=== PATIENT | male | born 1980 | race Two or more races ===

== ENCOUNTER 2020-01-22 10:25 | Emergency (ER) | payer OTHER ==
[~2020-01-22] VITALS: Ht 182.9 cm; Wt 133.8 kg
[2020-01-22 10:34] VITALS: BP 139/89
[2020-01-22] MEDS ORDERED: ACETAMINOPHEN 500 MG TAB PO ONE (10:45)
[2020-01-23] MEDS ORDERED: MONT10TA34 PO (12:44)
[2020-01-23] MEDS ORDERED: ALBUAER3 IN (12:44)
[2020-01-23] MEDS ORDERED: FLUT100I IN (12:44)
[2020-01-23] MEDS ORDERED: AZIT250T9 PO (12:44)
[2020-01-23] MEDS ORDERED: PRED20TA2 PO (12:44)
[2020-01-23] MEDS ORDERED: BENZ100C97 PO (12:44)
[2020-01-23] MEDS ORDERED: ALBU0.084 NEB (12:44)
[2020-01-23] MEDS ORDERED: ELDE1SYP PO (12:48)
[2020-01-30] MEDS ORDERED: METH4PAK PO (12:24)
[2020-01-30] MEDS ORDERED: ASCO10003 PO (12:24)
[2020-01-30] MEDS ORDERED: ZINC220T6 PO (12:24)
[2020-01-30] MEDS ORDERED: DOXY-286 PO (12:24)
[2020-01-30] MEDS ORDERED: PANT40TA2 PO (12:24)
== END 2020-01-22 11:16 | disposition home or self-care (01) ==
LOC: ER 10:25
DX: R06.02 Shortness of breath (principal); Z20.828 Contact with and (suspected) exposure to other viral communicable diseases

== ENCOUNTER 2020-01-23 03:07 | Inpatient (IN) | payer OTHER ==
[~2020-01-23] VITALS: Ht 182.9 cm; Wt 131.6 kg
[2020-01-23] MEDS ORDERED: SODIUM CHLORIDE 0.9% 1,000 ML IV ONE (05:55)
[2020-01-23] MEDS ORDERED: ACETAMINOPHEN 325 MG TAB PO ONE (06:00)
[2020-01-23 06:57] LABS: Basophils # (auto) 0 10 ^3/uL (0-0.2); Basophils % (auto) 0.2 % (0.0-2.0); Eosinophils # (auto) 0 10 ^3/uL (0-0.8); Hematocrit 44.5 % (41.0-53.0); Hemoglobin 14.8 g/dL (13.5-17.5); Lymphocytes # (auto) 0.6 10 ^3/uL (0.4-5.4); Lymphocytes % (auto) 5.2 % (10.0-50.0); Mean Corpuscular Hemoglobin 30.6 pg (28.0-32.0); Mean Corpuscular Hgb Conc. 33.4 g/dL (32.0-36.0); Mean Corpuscular Volume 91.8 fL (80.0-100.0); Monocytes # (auto) 0.4 10 ^3/uL (0-1.3); Monocytes % (auto) 3.7 % (0.0-12.0); Neutrophils # (auto) 10.8 10 ^3/uL (1.6-8.6); Neutrophils % (auto) 90.9 % (37.0-80.0); Nucleated Red Blood Cells % 0.1 %; Platelet Count (auto) 133 10^3/uL (140-450); Red Blood Cells 4.85 10^6/uL (4.5-5.90); Red Cell Distribution Width 13.1 % (11.8-14.3); White Blood Cell 11.8 10^3/uL (4.4-10.8)
[2020-01-23 07:27] LABS: Albumin 3.3 g/dL (3.4-5.0); BUN/Creatinine Ratio 12.9; Calcium 7.8 mg/dL (8.5-10.1); Magnesium 1.9 mg/dL (1.6-2.6)
[2020-01-23 07:30] LABS: Bilirubin, Total 0.6 mg/dL (0.2-1.0); Total Protein 7.7 g/dL (6.4-8.2)
[2020-01-23] MEDS ORDERED: cefTRIAXone 1GM/50ML D5W 50 ML IV ONE (07:30)
[2020-01-23] MEDS ORDERED: ASCORBIC ACID 500 MG TAB PO ONE (07:30)
[2020-01-23] MEDS ORDERED: ZINC SULFATE 220mg CAP or TAB PO ONE (07:30)
[2020-01-23] MEDS ORDERED: DexAMETHasone SOD PHOS 10MG/1ML VIAL INJ IV ONE (07:30)
[2020-01-23] MEDS ORDERED: AZITHROMYCIN 500MG/ 250ML 250 ML IV ONE (07:30)
[2020-01-23 07:36] LABS: Potassium 4.3 mmol/L (3.5-5.1)
[2020-01-23 09:13] LABS: Urine WBC None Seen /hpf (0 - 3)
[2020-01-23 09:33] LABS: Urine Bacteria NONE SEEN /hpf (None Seen); Urine Blood Negative /uL (Negative); Urine Specific Gravity 1.004 (1.001-1.035)
[2020-01-23 09:43] LABS: Lactic Acid w/Reflex 2.2 mmol/L (0.4-2.0)
[2020-01-23] MEDS: ENOXAPARIN SOD 100 MG/1 ML SYRINGE SC SCH ×2 (11:15→21:53)
[2020-01-23] MEDS ORDERED: MORPHINE SULF INJ 2 MG/ML SYRINGE 1ML IV PRN (11:15)
[2020-01-23] MEDS ORDERED: NITROGLYCERIN 0.4 MG SL TAB SL PRN (11:15)
[2020-01-23] MEDS ORDERED: MAGNESIUM SULFATE 1GM/100ML 100 ML IV ONE (11:15)
[2020-01-23] MEDS ORDERED: TEMAZEPAM 15 MG CAP PO PRN (11:30)
[2020-01-23] MEDS ORDERED: traMADol HCL 50 MG TAB PO PRN (11:30)
[2020-01-23] MEDS ORDERED: ALBUTEROL SULF 2.5 MG/0.5ML(0.5%) NEB SOLN NEB PRN (11:30)
[2020-01-23] MEDS ORDERED: DEXTROSE (50%) 50ML SYRG IV PRN (11:30)
[2020-01-23] MEDS: ACCU-CHEK COMFORT CURVE STRIP VI SCH ×3 (11:30→21:53)
[2020-01-23] MEDS ORDERED: PROMETHAZINE HCL 25 MG/ML 1ML IV PRN (11:30)
[2020-01-23] MEDS ORDERED: ALBUTEROL SULF 2.5 MG/0.5ML(0.5%) NEB SOLN NEB SCH (12:00)
[2020-01-23] MEDS ORDERED: IPRATROPIUM BROM 0.5 MG/2.5ML INH SOL NEB SCH (12:00)
[2020-01-23] MEDS ORDERED: PRED20TA2 PO (12:44)
[2020-01-23] MEDS ORDERED: ALBU0.084 NEB (12:44)
[2020-01-23] MEDS ORDERED: MONT10TA34 PO (12:44)
[2020-01-23] MEDS ORDERED: ALBUAER3 IN (12:44)
[2020-01-23] MEDS ORDERED: AZIT250T9 PO (12:44)
[2020-01-23] MEDS ORDERED: BENZ100C97 PO (12:44)
[2020-01-23] MEDS ORDERED: FLUT100I IN (12:44)
[2020-01-23] MEDS ORDERED: ELDE1SYP PO (12:48)
[2020-01-23] MEDS: ALBUTEROL SULF HFA 90MCG INH 200DOSE IN SCH ×2 (13:43→22:01)
[2020-01-23] MEDS ORDERED: ALBUTEROL SULF HFA 90MCG INH 200DOSE IN SCH (14:00)
[2020-01-23 14:01] VITALS: BP 132/81
[2020-01-23] MEDS: CLINDAMYCIN 600MG IV 50 ML IV SCH ×2 (14:26→21:53)
[2020-01-23] MEDS: SODIUM CHLOR 0.9% PF (SALINE LOCK) 10ML VIAL/SYR IV SCH ×2 (14:26→21:53)
[2020-01-23] MEDS: ACETAMINOPHEN 500 MG TAB PO PRN ×2 (14:31→22:11)
[2020-01-23 18:47] VITALS: BP 132/81
--- NOTE | 2020-01-23 19:45 | NUR ---
Assessed pts temp at 101.0 Cooling measures initiated. Will continue to monitor
--- NOTE | 2020-01-23 20:00 | NUR ---
Opening Shift Note Assumed care of patient. Awake, alert and oriented x4. Pt is on 4L NC at this time. Instructed on POC and to call for assist PRN. Bed locked, in lowest position, call light within reach, side rails up x2. Will continue to monitor for changes Q1hr and PRN.
--- NOTE | 2020-01-23 21:45 | NUR ---
Temp reassessment After cooling measures pts temp is 101.5. Tylenol now able to be given. Will continue with care
[2020-01-23 21:46] VITALS: BP 130/74
[2020-01-23] MEDS: BUDESONIDE (INHALATION) 180 MCG IH IN SCH (22:00)
--- NOTE | 2020-01-23 22:00 | NUR ---
Hospitalist paged For breakthrough fever
--- NOTE | 2020-01-23 22:38 | NUR ---
Call back from hospitalist No new orders received. Will continue with care
--- NOTE | 2020-01-23 23:30 | NUR ---
Temp reassessment Pts temp is now 99.7. Will continue to monitor
[2020-01-24 05:00] VITALS: BP 114/59
[2020-01-24 06:38] LABS: Basophils # (auto) 0 10 ^3/uL (0-0.2); Basophils % (auto) 0.3 % (0.0-2.0); Eosinophils # (auto) 0 10 ^3/uL (0-0.8); Hematocrit 44.1 % (41.0-53.0); Hemoglobin 14.8 g/dL (13.5-17.5); Lymphocytes # (auto) 1.2 10 ^3/uL (0.4-5.4); Lymphocytes % (auto) 11.2 % (10.0-50.0); Mean Corpuscular Hemoglobin 30.7 pg (28.0-32.0); Mean Corpuscular Hgb Conc. 33.6 g/dL (32.0-36.0); Mean Corpuscular Volume 91.3 fL (80.0-100.0); Monocytes # (auto) 0.3 10 ^3/uL (0-1.3); Monocytes % (auto) 2.7 % (0.0-12.0); Neutrophils # (auto) 9.2 10 ^3/uL (1.6-8.6); Neutrophils % (auto) 85.8 % (37.0-80.0); Nucleated Red Blood Cells % 0.1 %; Platelet Count (auto) 134 10^3/uL (140-450); Red Blood Cells 4.83 10^6/uL (4.5-5.90); Red Cell Distribution Width 13.1 % (11.8-14.3); White Blood Cell 10.7 10^3/uL (4.4-10.8)
[2020-01-24] MEDS: SODIUM CHLOR 0.9% PF (SALINE LOCK) 10ML VIAL/SYR IV SCH ×3 (06:49→21:35)
[2020-01-24] MEDS: CLINDAMYCIN 600MG IV 50 ML IV SCH (06:49)
[2020-01-24] MEDS: ACCU-CHEK COMFORT CURVE STRIP VI SCH ×6 (06:50→21:45)
[2020-01-24 07:00] LABS: Calcium 7.9 mg/dL (8.5-10.1); Potassium 4.2 mmol/L (3.5-5.1)
[2020-01-24 07:05] LABS: BUN/Creatinine Ratio 12.8; Bilirubin, Total 0.7 mg/dL (0.2-1.0); Total Protein 7.2 g/dL (6.4-8.2)
--- NOTE | 2020-01-24 07:40 | NUR ---
OPENING NOTE ASSUMED CARE OF PT. ALERT AND ORIENTED. NO S/S OF SOB/DISTRESS NOTED. BED SET TO LOWEST POSITION/LOCKED. BEDSIDE RAILS UP X2. CALL LIGHT WITHIN REACH. INSTRUCTED PT TO CALL FOR ASSISTANCE. UPDATED ON POC. PT VERBALIZED UNDERSTANDING. WILL CONTINUE TO MONITOR Q1HR AND PRN.
[2020-01-24 09:00] VITALS: BP 116/79
[2020-01-24] MEDS: DexAMETHasone SOD PHOS 10MG/1ML VIAL INJ IV SCH (09:35)
[2020-01-24] MEDS: CHOLECALCIFEROL (VITD3) 2,000 UNIT CAP PO SCH (09:36)
[2020-01-24] MEDS: ASCORBIC ACID 1,000 MG TAB PO SCH (09:36)
[2020-01-24] MEDS: ZINC SULFATE 220mg CAP or TAB PO SCH (09:36)
[2020-01-24] MEDS: ENOXAPARIN SOD 100 MG/1 ML SYRINGE SC SCH ×2 (09:37→21:36)
[2020-01-24] MEDS: ACETAMINOPHEN 500 MG TAB PO PRN ×2 (09:50→20:24)
--- NOTE | 2020-01-24 09:51 | NUR ---
TEMP PATIENT TEMP 102.3, COOLING MEASURE APPLIED. MEDICATION ADMINISTERED PER MD ORDER. WILL CONTINUE TO MONITOR FOR CHANGES.
[2020-01-24] MEDS ORDERED: levoFLOXacin 500MG 100 ML IV SCH (10:00)
[2020-01-24] MEDS: BUDESONIDE (INHALATION) 180 MCG IH IN SCH ×2 (10:00→23:51)
[2020-01-24] MEDS: ALBUTEROL SULF HFA 90MCG INH 200DOSE IN SCH ×3 (10:17→23:52)
--- NOTE | 2020-01-24 10:17 | NUR ---
FOUND PT. ON 6LPM NC, SATURATION WAS 86%. PLACED PT. ON OXYMIZER AT 10LPM, SPO2 91%. Addendum: 01/24/20 at 1029 by Charley Chaudhari RT Amended: Links added.
[2020-01-24 13:00] VITALS: BP 111/78
[2020-01-24] MEDS ORDERED: DEXTROSE (50%) 50ML SYRG IV PRN (13:15)
[2020-01-24] MEDS ORDERED: PIPERACILLIN-TAZOB 3.375GM 100 ML IV ONE (13:15)
[2020-01-24] MEDS ORDERED: SODIUM CHLORIDE 0.9% 1,000 ML IV ONE (13:15)
--- NOTE | 2020-01-24 14:52 | NUR ---
REMDESIVIR CONSENT PATIENT SIGNED REMDESIVIR CONSENT, COPY GIVEN TO PATIENT, PLACED IN CHART AND FAXED OVER TO PHARMACY.
[2020-01-24] MEDS: InsuLIN REG 1unit/0.01ml Soln (100units/ml) SC SCH ×2 (16:43→21:40)
[2020-01-24 17:00] VITALS: BP 134/75
[2020-01-24] MEDS ORDERED: [UNRECOGNIZED DRUG - OTHER] IV ONE (17:00)
[2020-01-24] MEDS ORDERED: SODIUM CHLORIDE 0.9% IV ONE (17:00)
[2020-01-24] MEDS ORDERED: REMDESIVIR IV ONE (17:00)
--- NOTE | 2020-01-24 17:32 | NUR ---
PRE INFUSION VS (REMDESIVIR) STARTED REMDESIVIR INFUSION STARTED. PATIENT BP: 118/85, HR: 110, O2 SATURATION: 91%. NO S/S OF SOB/DISTRESS NOTED. WILL CONTINUE TO MONITOR.
--- NOTE | 2020-01-24 17:50 | NUR ---
15 MIN INFUSION VS (REMDESIVIR) 15 MIN. VS PATIENT BP: 132/86, HR: 112, O2 SATURATION: 92%. NO S/S OF SOB/DISTRESS NOTED. WILL CONTINUE TO MONITOR.
[2020-01-24] MEDS: PIPERACILLIN-TAZOB 3.375GM 100 ML IV SCH ×2 (18:00→23:45)
--- NOTE | 2020-01-24 18:02 | NUR ---
ZOSYN 1800 ZOSYN HELD. PATIENT IS CURRENT INFUSING REMDESIVIR.
--- NOTE | 2020-01-24 18:40 | NUR ---
POST INFUSION VS (REMDESIVIR) POST INFUSION VS. PATIENT BP: 123/79, HR: 119, O2 SATURATION: 90%. NO S/S OF SOB/DISTRESS NOTED. WILL CONTINUE TO MONITOR.
--- NOTE | 2020-01-24 20:00 | NUR ---
Opening Shift Note Assumed care of patient. Awake, alert and oriented x4. Pt is on 10L oxymizer at this time with even and unlabored respirations. Instructed on POC and to call for assist PRN. Bed locked, in lowest position, call light within reach, side rails up x2. Will continue to monitor for changes Q1hr and PRN.
[2020-01-24 22:00] VITALS: BP 120/86
--- NOTE | 2020-01-25 04:33 | NUR ---
Elevated temp Temp is 101.1. Meds given as ordered. Will continue to monitor
[2020-01-25 05:00] VITALS: BP 120/76
[2020-01-25] MEDS: ACETAMINOPHEN 500 MG TAB PO PRN (05:03)
[2020-01-25] MEDS: PIPERACILLIN-TAZOB 3.375GM 100 ML IV SCH ×3 (06:40→19:40)
[2020-01-25] MEDS: SODIUM CHLOR 0.9% PF (SALINE LOCK) 10ML VIAL/SYR IV SCH ×3 (06:40→23:38)
[2020-01-25] MEDS: ACCU-CHEK COMFORT CURVE STRIP VI SCH ×6 (06:41→23:43)
[2020-01-25] MEDS: InsuLIN REG 1unit/0.01ml Soln (100units/ml) SC SCH ×4 (06:43→23:29)
[2020-01-25] MEDS: ALBUTEROL SULF HFA 90MCG INH 200DOSE IN SCH ×3 (08:21→21:43)
[2020-01-25] MEDS: BUDESONIDE (INHALATION) 180 MCG IH IN SCH ×2 (08:21→21:43)
[2020-01-25 08:46] VITALS: BP 123/77
[2020-01-25] MEDS: ENOXAPARIN SOD 100 MG/1 ML SYRINGE SC SCH (09:55)
[2020-01-25] MEDS: CHOLECALCIFEROL (VITD3) 2,000 UNIT CAP PO SCH (09:56)
[2020-01-25] MEDS: ZINC SULFATE 220mg CAP or TAB PO SCH (09:56)
[2020-01-25] MEDS: DexAMETHasone SOD PHOS 10MG/1ML VIAL INJ IV SCH ×2 (09:56→23:38)
[2020-01-25] MEDS: PANTOPRAZOLE 40 MG TAB PO SCH (09:56)
[2020-01-25] MEDS: ASCORBIC ACID 1,000 MG TAB PO SCH (09:56)
[2020-01-25 10:09] LABS: Calcium 8.9 mg/dL (8.5-10.1); Magnesium 2.6 mg/dL (1.6-2.6); Potassium 4.6 mmol/L (3.5-5.1)
[2020-01-25 10:19] LABS: BUN/Creatinine Ratio 15.3; Bilirubin, Total 0.6 mg/dL (0.2-1.0); CRP High Sensitivity 12.9 mg/dL (< 0.3); Total Protein 7.8 g/dL (6.4-8.2)
[2020-01-25 13:00] VITALS: BP 112/71
[2020-01-25] MEDS ORDERED: FUROSEMIDE 20 MG/2 ML VIAL IV ONE (14:15)
[2020-01-25] MEDS ORDERED: ACETAMINOPHEN 650 mg PER 20 mL UD PO ONE (14:45)
[2020-01-25] MEDS ORDERED: diphenhdrAMINE HCL 50 MG/1 ML VL IV ONE (14:45)
[2020-01-25 17:00] VITALS: BP 125/78
[2020-01-25] MEDS: REMDESIVIR 100mg 100 MG in SODIUM CHL 0.9% 230 ML IV SCH (17:46)
--- NOTE | 2020-01-25 17:46 | NUR ---
Remdesivir initiated at this time Remdesivir initiaded at this time. Education provided to patient regarding S/S to look out for. Patient verbalized understanding. Will continue to monitor. Initial VS: HR-106, BP-122/76, O2 sat 93
--- NOTE | 2020-01-25 18:00 | NUR ---
Late antibiotic administration Scheduled 1800 antibiotic held at this time as patient's IV line is currently running Remdesivir. Pharmacy has been notified.
--- NOTE | 2020-01-25 18:55 | NUR ---
Remdesivir infusion ended Remdesivir infusion ended at this time. Patient tolerated well, no nausea/vomit/fever/chills reported. VS 15 min after administration: HR-102, BP- 117/80, O2 sat 92%, Temp- 98.1 VS post infusion: HR- 103, BP- 120/80, O2 sat 92%, Temp- 98.2
--- NOTE | 2020-01-25 19:20 | NUR ---
Opening Shift Note Assumed care of patient, awake and alert x4. Patient is on 15L Oxymizer mask at this time O2 Sat is at 92%. Patient denies pain at this time. Instructed on plan of care and encouraged patient to call for assistance as needed. Bed is locked in lowest position, side rails x 2 are up, and call light is within reach.
--- NOTE | 2020-01-25 19:30 | NUR ---
Endorsed NOC nurse Endorsed care of patient to to NOC DARLYN Grullon. Also endorsed to provide information/education and obtain consent for administration of Convalescent Plasma. Awaiting for blood bank to bullet consents. House Sup to be notified once consents have been signed.
[2020-01-25] MEDS ORDERED: methylPREDNISolone SOD SUCC 40 MG/ML VL IV ONE (21:00)
[2020-01-25] MEDS ORDERED: TOCILIZUMAB 400 MG in SODIUM CHL 0.9% 80 ML IV ONE (21:00)
[2020-01-25 22:00] VITALS: BP 113/73
[2020-01-25] MEDS: diphenhdrAMINE HCL 50 MG/1 ML VL IV SCH (23:36)
[2020-01-25] MEDS: ACETAMINOPHEN 650 mg PER 20 mL UD PO SCH (23:39)
[2020-01-25] MEDS: ENOXAPARIN SOD 150 MG/1 ML SYRINGE SC SCH (23:45)
[2020-01-25] MEDS: TOCILIZUMAB 400 MG in SODIUM CHL 0.9% 80 ML IV SCH (23:49)
--- NOTE | 2020-01-26 | NUR ---
respiratory culture sent
[2020-01-26] MEDS: PIPERACILLIN-TAZOB 3.375GM 100 ML IV SCH ×4 (00:50→20:53)
--- NOTE | 2020-01-26 01:06 | NUR ---
CARDIAC CATHETERIZATION TECHNOLOGIST CONVALESCENT PLASMA ORDERED AND PATIENT REGISTERED ONLINE WITH THE CONVALESCENT PLASMA PROGRAM WITH IDENTIFICATION NUMBER [id number]
[2020-01-26 05:00] VITALS: BP 110/66
[2020-01-26] MEDS: ACCU-CHEK COMFORT CURVE STRIP VI SCH ×4 (05:27→21:35)
[2020-01-26] MEDS: InsuLIN REG 1unit/0.01ml Soln (100units/ml) SC SCH ×4 (05:29→21:36)
[2020-01-26] MEDS: SODIUM CHLOR 0.9% PF (SALINE LOCK) 10ML VIAL/SYR IV SCH ×3 (05:31→20:53)
--- NOTE | 2020-01-26 07:30 | NUR ---
Opening Shift Note Assumed care of patient, awake and alert. No S/S of distress/SOB or pain. Instructed on POC and to call for assist PRN, will continue to monitor for changes Q1hr and PRN. Fall precautions in place per safety protocol.
[2020-01-26] MEDS: ALBUTEROL SULF HFA 90MCG INH 200DOSE IN SCH ×3 (07:37→22:00)
[2020-01-26] MEDS: BUDESONIDE (INHALATION) 180 MCG IH IN SCH ×2 (07:37→22:00)
[2020-01-26 09:00] VITALS: BP 102/66
[2020-01-26] MEDS: ENOXAPARIN SOD 150 MG/1 ML SYRINGE SC SCH ×2 (09:09→20:53)
[2020-01-26] MEDS: ZINC SULFATE 220mg CAP or TAB PO SCH (09:09)
[2020-01-26] MEDS: PANTOPRAZOLE 40 MG TAB PO SCH (09:09)
[2020-01-26] MEDS: CHOLECALCIFEROL (VITD3) 2,000 UNIT CAP PO SCH (09:09)
[2020-01-26] MEDS: ASCORBIC ACID 1,000 MG TAB PO SCH (09:09)
[2020-01-26] MEDS: ACETAMINOPHEN 650 mg PER 20 mL UD PO SCH (11:37)
[2020-01-26] MEDS: diphenhdrAMINE HCL 50 MG/1 ML VL IV SCH (11:37)
[2020-01-26] MEDS: DexAMETHasone SOD PHOS 10MG/1ML VIAL INJ IV SCH ×2 (11:37→20:53)
--- NOTE | 2020-01-26 11:58 | NUR ---
Nutrition Assessment Notes please see attached link for complete assessment Est energy needs ABW 109 [id number] kcal (17-20 kcal/kg ABW), Est protein: 87-109g (0.8-1.0 g/kg ABW). Will reassess prn. Addendum: 01/26/20 at [address] Amended: Links added.
[2020-01-26] MEDS: TOCILIZUMAB 400 MG in SODIUM CHL 0.9% 80 ML IV SCH (12:07)
[2020-01-26 12:26] LABS: Basophils # (auto) 0 10 ^3/uL (0-0.2); Basophils % (auto) 0.1 % (0.0-2.0); Eosinophils # (auto) 0 10 ^3/uL (0-0.8); Hematocrit 46.6 % (41.0-53.0); Hemoglobin 15.5 g/dL (13.5-17.5); Lymphocytes # (auto) 0.8 10 ^3/uL (0.4-5.4); Lymphocytes % (auto) 7.5 % (10.0-50.0); Mean Corpuscular Hemoglobin 30.3 pg (28.0-32.0); Mean Corpuscular Hgb Conc. 33.3 g/dL (32.0-36.0); Mean Corpuscular Volume 90.8 fL (80.0-100.0); Monocytes # (auto) 0.8 10 ^3/uL (0-1.3); Monocytes % (auto) 7.3 % (0.0-12.0); Neutrophils # (auto) 8.9 10 ^3/uL (1.6-8.6); Neutrophils % (auto) 85.1 % (37.0-80.0); Nucleated Red Blood Cells % 0.1 %; Platelet Count (auto) 229 10^3/uL (140-450); Red Blood Cells 5.13 10^6/uL (4.5-5.90); Red Cell Distribution Width 12.7 % (11.8-14.3); White Blood Cell 10.5 10^3/uL (4.4-10.8)
[2020-01-26 12:41] LABS: Calcium 8.8 mg/dL (8.5-10.1); Potassium 4.1 mmol/L (3.5-5.1)
[2020-01-26 12:52] LABS: BUN/Creatinine Ratio 21.5; Bilirubin, Total 0.4 mg/dL (0.2-1.0); CRP High Sensitivity 7.6 mg/dL (< 0.3)
[2020-01-26 13:00] VITALS: BP 107/69
[2020-01-26 15:25] VITALS: BP 107/69
[2020-01-26 17:00] VITALS: BP 102/74
[2020-01-26] MEDS: REMDESIVIR 100mg 100 MG in SODIUM CHL 0.9% 230 ML IV SCH (18:40)
--- NOTE | 2020-01-26 18:40 | NUR ---
Remdesivir Premedication Vitals BP113/69 HR75 T99.1 O290% RR 20. 15 minute recheck BP 113/63 HR84 T98.2 O2 91 RR 20. Patient denies any symptoms at this time.
--- NOTE | 2020-01-26 18:50 | NUR ---
Pulmonary MD Shaver at bedside, aware of patient status. Per MD Shaver he recommends upgrading patient to SEAN if, he continues to desaturate, however, no orders received at this time. Will notify Charge and Night RN.
--- NOTE | 2020-01-26 20:00 | NUR ---
Opening Shift Note Assumed care of patient, awake and alert x4. Patient denies pain at this time. Patient reports mild shortness of breath at rest, but patient states his shortness of breath has improved since Tuesday. Patient is on 15L/min nonrebreather,SPO2: 94% at this time. No sign/symptoms of distress noted or verbalized at this time. Incentive spirometer noted at the bedside. Reinforced patient to use incentive spirometer at least 10 times every hour, patient was able to raiser marker to 1000ml. Instructed on plan of care and encouraged patient to call for assistance as needed, patient verbalized understanding. Bed is locked in lowest position, side rails x 2 are up, call light is within reach. Will continue care.
--- NOTE | 2020-01-26 20:00 | NUR ---
Post Remdesivir Vital Signs BP: 118/76, HR: 89, RR: 20, SPO2: 96% on 15L/min nonrebreather, and TEMP: 99.1
[2020-01-26 22:00] VITALS: BP 118/76
--- NOTE | 2020-01-27 00:30 | NUR ---
Oxygen Desaturation Patient's oxygen saturation noted in the mid 80s on 15L/min nonrebreather. Patient stated that he was having a cough attack prior to oxygen desaturation. Instructed patient to take deep breaths, oxygen saturation sustained in the mid 80's. This RN placed Oxymizer 12L/min with nonrebreather over Oxymizer at 15L/min. Patient's oxygen saturation sustained at 88%. This RN assisted patient into prone position. After a couple of minutes patients oxygen saturation increased to 92% on 12L/min Oxymizer with 15L/min nonrebreather. Patient is currently laying in prone position with 12L/min Oxymizer and 15L/min nonrebreather, SPO2: 92% at this time, patient tolerating well at this time. Patient reports mild shortness of breath, no use of accessory muscle noted at this time. Will continue to monitor.
[2020-01-27] MEDS: PROMETHAZINE W/CODEINE 5 ML ORAL SYRUP PO PRN ×4 (00:40→21:39)
[2020-01-27] MEDS: PIPERACILLIN-TAZOB 3.375GM 100 ML IV SCH ×4 (01:10→18:03)
--- NOTE | 2020-01-27 01:30 | NUR ---
Oxygen Titrated Down Patient is now in high swan position. Patient titrated down to 15L/min nonrebreather, SPO2 is at 96% and sustaining at this time with even and unlabored respirations. No sign/symptoms of distress noted or verbalized at this time. Will continue care.
--- NOTE | 2020-01-27 04:20 | NUR ---
RT at bedside RT at bedside assessing patient at this time due to oxygen saturation sustaining between 86-89% on 15L/min nonrebreather with 12L/min Oxymizer at this time. Addendum: 01/27/20 at 0505 by CLIF SKINNER RN RN Patient's oxygen saturation was sustaining between 85-87% on 15L/min nonrebreather. RT placed patient on 15L/min nonrebreather with 12L/min Oxymizer with oxygen saturation sustaining between 86-89%, after a few minutes patient's oxygen saturation increased and sustained at 96% on 15L/min nonrebreather and 12L/min Oxymizer. RT titrated patient back down to 15L/min nonrebreather and patient's oxygen saturation sustained at 94%.
--- NOTE | 2020-01-27 04:45 | NUR ---
Oxygen Saturation After a few minutes after patient was placed on 15L/min nonrebreather with 12L/min Oxymizer, patient's oxygen saturation increased from 88% to 96% and sustained at 96%. RT removed Oxymizer and left patient with 15L/min nonrebreather, patients oxygen saturation sustained at 94%. Patients oxygen saturation is now at 94% on 15L/min nonrebreather. Patient reports mild shortness of breath (same from initial assessment). Patients respiration rate is 26 breaths per minute, even and unlabored, with no use of accessory muscle noted at this time. No sign/symptoms of distress noted or verbalized at this time. Will continue care.
[2020-01-27 05:00] VITALS: BP 110/72
[2020-01-27 06:31] LABS: Basophils # (auto) 0 10 ^3/uL (0-0.2); Basophils % (auto) 0.1 % (0.0-2.0); Eosinophils # (auto) 0 10 ^3/uL (0-0.8); Hematocrit 44.6 % (41.0-53.0); Hemoglobin 14.6 g/dL (13.5-17.5); Lymphocytes # (auto) 0.9 10 ^3/uL (0.4-5.4); Lymphocytes % (auto) 7.6 % (10.0-50.0); Mean Corpuscular Hemoglobin 29.9 pg (28.0-32.0); Mean Corpuscular Hgb Conc. 32.7 g/dL (32.0-36.0); Mean Corpuscular Volume 91.5 fL (80.0-100.0); Monocytes % (auto) 8.5 % (0.0-12.0); Neutrophils % (auto) 83.8 % (37.0-80.0); Nucleated Red Blood Cells % 0.1 %; Platelet Count (auto) 232 10^3/uL (140-450); Red Blood Cells 4.88 10^6/uL (4.5-5.90); Red Cell Distribution Width 12.6 % (11.8-14.3)
[2020-01-27 06:47] LABS: Albumin 2.8 g/dL (3.4-5.0); Calcium 8.6 mg/dL (8.5-10.1); Potassium 4.7 mmol/L (3.5-5.1)
[2020-01-27 06:51] LABS: BUN/Creatinine Ratio 20.9; Bilirubin, Total 0.4 mg/dL (0.2-1.0); Total Protein 7.2 g/dL (6.4-8.2)
[2020-01-27] MEDS: ALBUTEROL SULF HFA 90MCG INH 200DOSE IN SCH ×3 (07:16→21:52)
--- NOTE | 2020-01-27 07:20 | NUR ---
Closing Shift Note Patient is sitting in high fowlers position on 15L/min nonrebreather, SPO2: 94% at this time. No sign/symptoms of distress noted or verbalized at this time. Patient care endorsed to Jane SANTIZO.
[2020-01-27] MEDS: ACCU-CHEK COMFORT CURVE STRIP VI SCH ×4 (07:21→21:41)
[2020-01-27] MEDS: SODIUM CHLOR 0.9% PF (SALINE LOCK) 10ML VIAL/SYR IV SCH ×3 (07:22→21:42)
[2020-01-27] MEDS: InsuLIN REG 1unit/0.01ml Soln (100units/ml) SC SCH ×4 (07:22→21:42)
--- NOTE | 2020-01-27 07:34 | NUR ---
Opening Shift Note Assumed care of patient, awake and alert. No S/S of distress. SOB with activity, denies pain. Instructed on POC and to call for assist PRN, will continue to monitor for changes Q1hr and PRN.
[2020-01-27 08:58] VITALS: BP 105/64
[2020-01-27] MEDS: ASCORBIC ACID 1,000 MG TAB PO SCH (10:25)
[2020-01-27] MEDS: DexAMETHasone SOD PHOS 10MG/1ML VIAL INJ IV SCH ×2 (10:25→21:41)
[2020-01-27] MEDS: ZINC SULFATE 220mg CAP or TAB PO SCH (10:25)
[2020-01-27] MEDS: PANTOPRAZOLE 40 MG TAB PO SCH (10:25)
[2020-01-27] MEDS: LINEZOLID 600MG/300ML 300 ML IV SCH ×2 (10:25→21:41)
[2020-01-27] MEDS: ENOXAPARIN SOD 150 MG/1 ML SYRINGE SC SCH ×2 (10:26→21:41)
[2020-01-27] MEDS: CHOLECALCIFEROL (VITD3) 2,000 UNIT CAP PO SCH (10:26)
[2020-01-27] MEDS: BUDESONIDE (INHALATION) 180 MCG IH IN SCH ×2 (12:04→21:52)
[2020-01-27 13:10] VITALS: BP 122/72
[2020-01-27 17:28] VITALS: BP 110/72
[2020-01-27] MEDS: REMDESIVIR 100mg 100 MG in SODIUM CHL 0.9% 230 ML IV SCH (17:59)
--- NOTE | 2020-01-27 19:40 | NUR ---
Opening Shift Note Assumed care of patient, awake and alert. No S/S of distress/SOB or pain. Patient on 15L Non-rebreather. Instructed on POC and to call for assist PRN, will continue to monitor for changes Q1hr and PRN.
[2020-01-27 20:00] VITALS: BP 98/66
[2020-01-27 22:00] VITALS: BP 98/66
[2020-01-28] MEDS: PIPERACILLIN-TAZOB 3.375GM 100 ML IV SCH ×4 (00:29→18:27)
[2020-01-28 05:00] VITALS: BP 116/65
[2020-01-28] MEDS: ACCU-CHEK COMFORT CURVE STRIP VI SCH ×4 (06:33→21:55)
[2020-01-28] MEDS: SODIUM CHLOR 0.9% PF (SALINE LOCK) 10ML VIAL/SYR IV SCH ×3 (06:33→21:55)
[2020-01-28] MEDS: InsuLIN REG 1unit/0.01ml Soln (100units/ml) SC SCH ×4 (06:34→21:56)
[2020-01-28] MEDS: PROMETHAZINE W/CODEINE 5 ML ORAL SYRUP PO PRN ×3 (06:50→21:56)
[2020-01-28 07:13] LABS: Basophils # (auto) 0 10 ^3/uL (0-0.2); Basophils % (auto) 0.3 % (0.0-2.0); Eosinophils # (auto) 0 10 ^3/uL (0-0.8); Hematocrit 44.4 % (41.0-53.0); Hemoglobin 14.7 g/dL (13.5-17.5); Lymphocytes # (auto) 0.9 10 ^3/uL (0.4-5.4); Mean Corpuscular Hemoglobin 30.3 pg (28.0-32.0); Mean Corpuscular Hgb Conc. 33.1 g/dL (32.0-36.0); Mean Corpuscular Volume 91.4 fL (80.0-100.0); Monocytes # (auto) 0.9 10 ^3/uL (0-1.3); Monocytes % (auto) 6.8 % (0.0-12.0); Neutrophils # (auto) 11.3 10 ^3/uL (1.6-8.6); Neutrophils % (auto) 85.9 % (37.0-80.0); Nucleated Red Blood Cells % 0.1 %; Platelet Count (auto) 273 10^3/uL (140-450); Red Blood Cells 4.86 10^6/uL (4.5-5.90); Red Cell Distribution Width 12.6 % (11.8-14.3); White Blood Cell 13.2 10^3/uL (4.4-10.8)
--- NOTE | 2020-01-28 07:30 | NUR ---
OPENING NOTE ASSUMED CARE OF PT. ALERT AND ORIENTED. NO S/S OF SOB/DISTRESS NOTED. BED SET TO LOWEST POSITION/LOCKED, BEDSIDE RAILS UP X2, CALL LIGHT WITHIN REACH, INSTRUCTED PT TO CALL FOR ASSISTANCE. UPDATE PT TO CALL FOR ASSISTANCE. PT VERBALIZED UNDERSTANDING. WILL CONTINUE TO MONITOR Q1HR AND PRN.
[2020-01-28 07:34] LABS: Calcium 8.5 mg/dL (8.5-10.1); Potassium 4.7 mmol/L (3.5-5.1)
[2020-01-28 07:39] LABS: BUN/Creatinine Ratio 20.6; Bilirubin, Total 0.6 mg/dL (0.2-1.0); Total Protein 7.3 g/dL (6.4-8.2)
[2020-01-28] MEDS: BUDESONIDE (INHALATION) 180 MCG IH IN SCH ×2 (07:53→21:37)
[2020-01-28] MEDS: ALBUTEROL SULF HFA 90MCG INH 200DOSE IN SCH ×3 (07:53→21:36)
[2020-01-28 09:00] VITALS: BP 111/68
[2020-01-28] MEDS: DexAMETHasone SOD PHOS 10MG/1ML VIAL INJ IV SCH ×2 (09:35→21:55)
[2020-01-28] MEDS: LINEZOLID 600MG/300ML 300 ML IV SCH ×2 (09:35→21:55)
[2020-01-28] MEDS: ZINC SULFATE 220mg CAP or TAB PO SCH (09:36)
[2020-01-28] MEDS: ASCORBIC ACID 1,000 MG TAB PO SCH (09:36)
[2020-01-28] MEDS: CHOLECALCIFEROL (VITD3) 2,000 UNIT CAP PO SCH (09:36)
[2020-01-28] MEDS: PANTOPRAZOLE 40 MG TAB PO SCH (09:36)
[2020-01-28] MEDS: ENOXAPARIN SOD 150 MG/1 ML SYRINGE SC SCH ×2 (09:36→21:55)
[2020-01-28 12:00] VITALS: BP 114/77
[2020-01-28] MEDS ORDERED: POTASSIUM CHL 20 Meq TABLET PO ONE (13:15)
[2020-01-28] MEDS ORDERED: FUROSEMIDE 40 MG/4 ML VIAL IV ONE (13:15)
[2020-01-28 17:00] VITALS: BP 115/70
[2020-01-28] MEDS: REMDESIVIR 100mg 100 MG in SODIUM CHL 0.9% 230 ML IV SCH (17:09)
--- NOTE | 2020-01-28 17:09 | NUR ---
PRE INFUSION VS (REMDESIVIR) STARTED REMDESIVIR INFUSION STARTED. PATIENT BP: 123/65, HR: 65, O2 SATURATION: 90%. NO S/S OF SOB/DISTRESS NOTED. WILL CONTINUE TO MONITOR.
--- NOTE | 2020-01-28 17:24 | NUR ---
15 MIN INFUSION VS (REMDESIVIR) 15 MIN. VS PATIENT BP: 115/66, HR: 84, O2 SATURATION: 94%. NO S/S OF SOB/DISTRESS NOTED. WILL CONTINUE TO MONITOR.
--- NOTE | 2020-01-28 18:12 | NUR ---
POST INFUSION VS (REMDESIVIR) POST INFUSION VS. PATIENT BP: 108/65, HR: 82, O2 SATURATION: 94%. NO S/S OF SOB/DISTRESS NOTED. WILL CONTINUE TO MONITOR.
--- NOTE | 2020-01-28 19:40 | NUR ---
Opening Shift Note Assumed care of patient, awake and alert. No S/S of distress/SOB or pain. Patient on 4L Oxymizer sating at 92%. Instructed on POC and to call for assist PRN, will continue to monitor for changes Q1hr and PRN.
--- NOTE | 2020-01-28 21:36 | NUR ---
RT NOTE PT WAS SEEN BY RT FOR MDI TX. PT TOLERATES WELL VIA SPACER. PT RINSED MOUTH WITH WATER POST MDI TX. HR 94, RR16, BS CLEAR/DIMINISHED, POX 94% ON 4L OXYMIZER. CONT ORDERED Addendum: 01/28/20 at 2302 by Latrice Montejo RT Amended: Links added.
[2020-01-28 22:00] VITALS: BP 117/70
--- NOTE | 2020-01-28 22:20 | NUR ---
Hold Plasma Plasma was ready for patient but patient refused to hold plasma transfusion till tomorrow. Patient wants to speak with doctor first.
[2020-01-29] VITALS (7 sets, daily range): BP systolic 107–125; BP diastolic 64–79
[2020-01-29] MEDS: PIPERACILLIN-TAZOB 3.375GM 100 ML IV SCH ×4 (00:20→18:06)
[2020-01-29 05:58] LABS: Basophils # (auto) 0 10 ^3/uL (0-0.2); Basophils % (auto) 0.2 % (0.0-2.0); Eosinophils # (auto) 0 10 ^3/uL (0-0.8); Hematocrit 42.8 % (41.0-53.0); Hemoglobin 14.3 g/dL (13.5-17.5); Lymphocytes # (auto) 0.9 10 ^3/uL (0.4-5.4); Lymphocytes % (auto) 7.3 % (10.0-50.0); Mean Corpuscular Hemoglobin 30.4 pg (28.0-32.0); Mean Corpuscular Hgb Conc. 33.4 g/dL (32.0-36.0); Monocytes # (auto) 0.7 10 ^3/uL (0-1.3); Monocytes % (auto) 5.7 % (0.0-12.0); Neutrophils # (auto) 10.9 10 ^3/uL (1.6-8.6); Neutrophils % (auto) 86.8 % (37.0-80.0); Nucleated Red Blood Cells % 0.1 %; Platelet Count (auto) 232 10^3/uL (140-450); Red Blood Cells 4.71 10^6/uL (4.5-5.90); Red Cell Distribution Width 12.5 % (11.8-14.3); White Blood Cell 12.5 10^3/uL (4.4-10.8)
[2020-01-29 06:08] LABS: Magnesium 2.4 mg/dL (1.6-2.6); Potassium 4.5 mmol/L (3.5-5.1)
[2020-01-29 06:19] LABS: Albumin 2.9 g/dL (3.4-5.0); Bilirubin, Total 0.7 mg/dL (0.2-1.0); CRP High Sensitivity 1.11 mg/dL (< 0.3); Calcium 8.3 mg/dL (8.5-10.1)
[2020-01-29] MEDS: SODIUM CHLOR 0.9% PF (SALINE LOCK) 10ML VIAL/SYR IV SCH ×3 (06:46→22:03)
[2020-01-29] MEDS: ACCU-CHEK COMFORT CURVE STRIP VI SCH ×4 (06:47→22:03)
[2020-01-29] MEDS: InsuLIN REG 1unit/0.01ml Soln (100units/ml) SC SCH ×4 (06:47→22:11)
--- NOTE | 2020-01-29 06:49 | NUR ---
Oxygen Tritiated Oxygen tritiated to 2L patient sating in the low 90's
[2020-01-29] MEDS: ALBUTEROL SULF HFA 90MCG INH 200DOSE IN SCH ×3 (07:05→21:51)
[2020-01-29] MEDS: BUDESONIDE (INHALATION) 180 MCG IH IN SCH ×2 (07:07→21:50)
[2020-01-29] MEDS: DexAMETHasone SOD PHOS 10MG/1ML VIAL INJ IV SCH ×2 (09:09→21:41)
[2020-01-29] MEDS: LINEZOLID 600MG/300ML 300 ML IV SCH ×2 (09:10→21:42)
[2020-01-29] MEDS: ZINC SULFATE 220mg CAP or TAB PO SCH (09:10)
[2020-01-29] MEDS: PANTOPRAZOLE 40 MG TAB PO SCH (09:16)
[2020-01-29] MEDS: ASCORBIC ACID 1,000 MG TAB PO SCH (09:16)
[2020-01-29] MEDS: CHOLECALCIFEROL (VITD3) 2,000 UNIT CAP PO SCH (09:17)
[2020-01-29] MEDS: ENOXAPARIN SOD 150 MG/1 ML SYRINGE SC SCH ×2 (09:17→21:41)
--- NOTE | 2020-01-29 11:15 | NUR ---
ENDORSED CARE TO DARLYN SCHWAB.
--- NOTE | 2020-01-29 11:45 | NUR ---
UA URINE SAMPLE COLLECTED AND SENT TO LAB.
[2020-01-29 12:12] LABS: Protein, Urine 22.4 mg/dL (0.0-11.9)
--- NOTE | 2020-01-29 15:35 | NUR ---
PER Aliya ADAME OK TO NOT ADMINISTER PLASMA. INFORMED OF PATIENT STATUS. STATED OK TO OBSERVE PATIENT ONE MORE DAY.
--- NOTE | 2020-01-29 15:51 | NUR ---
Nutrition Followup Notes Pt wt is 131.7 kg Pt is positive for COVID. Pt is with a CCHO 60g diet, appetite is good aeb 100% PO intake over 6 meals per RN doc. Pt with no distress per RN doc. Will continue to monitor PO status, skin status, pertinent labs and weight trends. Will f/u in 3-5 days. Est energy needs ABW 109 [id number] kcal (17-20 kcal/kg ABW), Est protein: 87-109g (0.8-1.0 g/kg ABW). Will reassess prn. LABS: Gluc 137 H, Ca 8.3 L, Alb 2.9 L GI: Pt had 1 BM on 01/28 per RN doc. BS: 21 low risk. Refer to wound assessment report for full details. PES: Decreased nutrient needs r/t adiposity aeb pt`s high BMI of 40.8 kgm2 Altered nutrition related lab values r.t current chronic medical condition aeb elev RFT hyperglcyemia mild hypoalb Malnutrition related to morbid BMI> or equal to 40 Malnutrition related to morbid obesity Yes Comments 1) consider 2 gm na diet if blood glu wnl as pt with no hx of DM per chart 2) refer to OPD dietitain on DC for wt managment 3) continue current plan of care
--- NOTE | 2020-01-29 19:25 | NUR ---
Opening Shift Note Received report from mt Pacheco RN. Assumed care of patient, awake and alert. No S/S of distress/SOB or pain. Patient is saturating at 93% on 2LNC. Instructed on POC and to call for assist PRN, will continue to monitor for changes Q1hr and PRN.
--- NOTE | 2020-01-29 21:15 | NUR ---
Patient refused IV replacement. IV to RFA was inserted on 01/23/20 but patient refused to have a new IV insertion. Patient is possible d/c tomorrow. Patient ask to reinforce IV, IV flushing easily, dressing reinforced and no swelling or redness noted.
[2020-01-30] MEDS: PIPERACILLIN-TAZOB 3.375GM 100 ML IV SCH ×2 (00:24→05:37)
[2020-01-30 04:46] VITALS: BP 107/52
[2020-01-30] MEDS: SODIUM CHLOR 0.9% PF (SALINE LOCK) 10ML VIAL/SYR IV SCH (05:37)
[2020-01-30] MEDS: InsuLIN REG 1unit/0.01ml Soln (100units/ml) SC SCH ×2 (06:07→11:24)
[2020-01-30] MEDS: ACCU-CHEK COMFORT CURVE STRIP VI SCH ×2 (06:07→11:12)
--- NOTE | 2020-01-30 07:12 | NUR ---
ROUNDS Patient is alert and awake, no distress noted, saturating at 93% on 2LNC. Blood sugar is 115. Patient denies pain at this time.
[2020-01-30] MEDS: BUDESONIDE (INHALATION) 180 MCG IH IN SCH (07:15)
[2020-01-30] MEDS: ALBUTEROL SULF HFA 90MCG INH 200DOSE IN SCH ×2 (07:15→15:19)
[2020-01-30 08:00] VITALS: BP 114/77
--- NOTE | 2020-01-30 08:00 | NUR ---
ASSESSMENT NOTE PT IS ALERT ORIENTED X4, RESTING IN BED COMFORTABLY IN A HIGH CHENG POSITION, LARGE SOFT ABDOMEN NOTED, ABLE TO SELF REPOSITION AND VERBALIS HIS DEMANDS, PAIN 0/10, NO DISTRESS NOTED, PT IS LOOKING FORWARD TO GO HOME
[2020-01-30 09:00] VITALS: BP 100/72
[2020-01-30 09:07] LABS: Basophils # (auto) 0 10 ^3/uL (0-0.2); Basophils % (auto) 0.3 % (0.0-2.0); Eosinophils # (auto) 0.2 10 ^3/uL (0-0.8); Eosinophils % (auto) 1.5 % (0.0-7.0); Hematocrit 43.7 % (41.0-53.0); Hemoglobin 14.7 g/dL (13.5-17.5); Lymphocytes # (auto) 1.8 10 ^3/uL (0.4-5.4); Lymphocytes % (auto) 16.3 % (10.0-50.0); Mean Corpuscular Hemoglobin 30.3 pg (28.0-32.0); Mean Corpuscular Hgb Conc. 33.6 g/dL (32.0-36.0); Mean Corpuscular Volume 90.2 fL (80.0-100.0); Monocytes # (auto) 0.7 10 ^3/uL (0-1.3); Monocytes % (auto) 6.3 % (0.0-12.0); Neutrophils # (auto) 8.6 10 ^3/uL (1.6-8.6); Neutrophils % (auto) 75.6 % (37.0-80.0); Platelet Count (auto) 255 10^3/uL (140-450); Red Blood Cells 4.84 10^6/uL (4.5-5.90); Red Cell Distribution Width 12.5 % (11.8-14.3); White Blood Cell 11.3 10^3/uL (4.4-10.8)
[2020-01-30] MEDS: DexAMETHasone SOD PHOS 10MG/1ML VIAL INJ IV SCH (09:09)
[2020-01-30] MEDS: LINEZOLID 600MG/300ML 300 ML IV SCH (09:09)
[2020-01-30] MEDS: ZINC SULFATE 220mg CAP or TAB PO SCH (09:10)
[2020-01-30] MEDS: ASCORBIC ACID 1,000 MG TAB PO SCH (09:10)
[2020-01-30] MEDS: PANTOPRAZOLE 40 MG TAB PO SCH (09:10)
[2020-01-30] MEDS: ENOXAPARIN SOD 150 MG/1 ML SYRINGE SC SCH (09:11)
[2020-01-30] MEDS: CHOLECALCIFEROL (VITD3) 2,000 UNIT CAP PO SCH (09:11)
[2020-01-30 09:26] LABS: Calcium 8.3 mg/dL (8.5-10.1); Potassium 3.7 mmol/L (3.5-5.1)
[2020-01-30 09:32] LABS: Bilirubin, Total 0.8 mg/dL (0.2-1.0); Total Protein 6.9 g/dL (6.4-8.2)
--- NOTE | 2020-01-30 10:30 | NUR ---
ROOM AIR SATURATION IS 97%
--- NOTE | 2020-01-30 11:00 | NUR ---
PT IS USING THE INCENTIVE SPIROMETER MAX TO 1500 10X PER
--- NOTE | 2020-01-30 11:30 | NUR ---
DR ADAME AT BED SIDE FOLLOWING UP ON PT, WITH DISCHARGE HOME INSTRUCTION, FOR PT TO SELF ISOLATION FOR 3 WEEKS, TAKE THE PRESCRIBED MEDS, AND FOLLOW UP WITH THE PRIMARY MD, ROZINA SANCHEZ UNDERSTANDING
--- NOTE | 2020-01-30 11:35 | NUR ---
MAX[place] VERIFY WITH DR ADAME IF WE NEED TO GIVE ZPSYN IV SAID NO NEED, HE IS GOING HOME, I WILL PUT HIM ON PO ANTIBIOTICS
[2020-01-30] MEDS ORDERED: DOXY-286 PO (12:24)
[2020-01-30] MEDS ORDERED: METH4PAK PO (12:24)
[2020-01-30] MEDS ORDERED: ASCO10003 PO (12:24)
[2020-01-30] MEDS ORDERED: ZINC220T6 PO (12:24)
[2020-01-30] MEDS ORDERED: PANT40TA2 PO (12:24)
[2020-01-30 12:51] VITALS: BP_SYST 111; BP_SYST 114; BP_DIAS 65; BP_DIAS 77
--- NOTE | 2020-01-30 13:30 | NUR ---
[facility] READY TO BE PICKED UP WITH PT'S
--- NOTE | 2020-01-30 13:44 | NUR ---
ALL DISCHARGE INSTRUCTIONS GIVEN TO PT VERBALIS UNDERSTANDING, PT CALL HIS TO PICK HIM UP, SAID SHE WILL BE HERE IN 30 MINUTES
--- NOTE | 2020-01-30 14:16 | NUR ---
Respiratory note: PT REFUSED [place] TX. PT STAED HES GOING HOME AND HAD ALREADY PACKED HIS MEDICATION.
--- NOTE | 2020-01-30 14:48 | NUR ---
Discharge instructions given as ordered. Encourage to follow up with PMD as instructed. All questions and concerns addressed. Patient verbalized understanding. Medication reconciliation form completed and copy given to patient. IV removed with catheter intact, pressure dressing applied, Telemetry unit returned to ICU. Patient taken to vehicle via wheelchair with all personal belongings, accompanied by staff . No distress noted at time of departure.
== END 2020-01-30 14:48 | disposition home or self-care (01) | DRG 871 ==
LOC: ER 03:07 → TELE 03:08 → TELE-EAST 15:58
PROVIDERS: ADMIT Internal Medicine; ATTEND Internal Medicine
DX: A41.89 Other specified sepsis (principal); J96.00 Acute respiratory failure, unspecified whether with hypoxia or hypercapnia; N17.0 Acute kidney failure with tubular necrosis; U07.1 COVID-19; J12.89 Other viral pneumonia; E44.1 Mild protein-calorie malnutrition; J45.901 Unspecified asthma with (acute) exacerbation; E11.65 Type 2 diabetes mellitus with hyperglycemia; E66.01 Morbid (severe) obesity due to excess calories; Z83.3 Family history of diabetes mellitus; Z80.9 Family history of malignant neoplasm, unspecified
CPT/HCPCS: 36415; 36600; 71045; 80053; 80061; 81001; 82570; 82728; 82805; 82962; 83036; 83605; 83615; 83735; 84156; 84300; 84443; 85025; 85379; 86141; 86850; 86900; 86901; 87070; 87205; 87804; 87880; 93005; 94640; 96365; 96367; 96375; G0378; J0696; J1100; J1815; J1956; J2543; J3490

== ENCOUNTER 2023-12-27 10:04 | Emergency (ER) | payer OTHER ==
[~2023-12-27] VITALS: Ht 182.9 cm; Wt 104.3 kg
[~2023-12-27 10:04] MED LIST: ALBU0.084 NEB; ALBUAER3 IN; ASCO10003 PO; AZIT-43 PO; BENZ100C97 PO; DOXY-286 PO; ELDE1SYP PO; FLUT100I IN; METH4PAK PO; MONT-8 PO; PANT40TA2 PO; PRED20TA2 PO; ZINC220T6 PO
[2023-12-27 10:37] LABS: Urine Bacteria None Seen /hpf (None Seen)
[2023-12-27 11:11] LABS: Urine Blood 3+ /uL (Negative); Urine Budding Yeast OCCASIONAL /hpf (None Seen); Urine Clarity Turbid (Clear); Urine Color Light-Orange (Yellow); Urine Protein, UAD TRACE (Negative); Urine Specific Gravity 1.024 (1.001-1.035); Urine Urobilinogen Normal (Negative); Urine WBC 7 /hpf (0 - 3); Urine pH 5.5 (5.0-9.0)
[2023-12-27 13:53] LABS: Basophils # (auto) 0.1 10 ^3/uL (0-0.2); Basophils % (auto) 0.9 % (0.0-2.0); Eosinophils # (auto) 0.3 10 ^3/uL (0-0.8); Eosinophils % (auto) 3.7 % (0.0-7.0); Hematocrit 47.4 % (41.0-53.0); Lymphocytes # (auto) 2.7 10 ^3/uL (0.4-5.4); Lymphocytes % (auto) 27.7 % (10.0-50.0); Mean Corpuscular Hemoglobin 30.6 pg (28.0-32.0); Mean Corpuscular Hgb Conc. 33.7 g/dL (32.0-36.0); Mean Corpuscular Volume 90.8 fL (80.0-100.0); Monocytes # (auto) 0.6 10 ^3/uL (0-1.3); Neutrophils # (auto) 5.9 10 ^3/uL (1.6-8.6); Neutrophils % (auto) 61.7 % (37.0-80.0); Nucleated Red Blood Cells % 0.1 %; Red Blood Cells 5.23 10^6/uL (4.5-5.90); Red Cell Distribution Width 12.9 % (11.8-14.3); White Blood Cell 9.6 10^3/uL (4.4-10.8)
[2023-12-27 14:11] LABS: INR 0.97 (0.9-1.15); Partial Thromboplastin Time 28.1 SEC (24.5-34.5); Prothrombin Time 10.3 sec (9.3-11.8)
[2023-12-27 14:12] LABS: Alanine Aminotransferase 54 U/L (7-40); Alkaline Phosphatase 105 U/L (46-116); Calcium 9.6 mg/dL (8.7-10.4); Carbon Dioxide 27 mmol/L (20-30); Chloride 106 mmol/L (98-107); Glucose 95 mg/dL (74-106); Lipase 34 U/L (12-53); Magnesium 1.8 mg/dL (1.6-2.6); Potassium 4.3 mmol/L (3.5-5.1)
[2023-12-27 14:13] LABS: Albumin 4.3 g/dL (3.2-4.8); Anion Gap 5 (5-15); Aspartate Aminotransferase 20 U/L (13-40); BUN/Creatinine Ratio 11.5 (10.0-20.0); Bilirubin, Total 0.6 mg/dL (0.2-1.0); Blood Urea Nitrogen 13 mg/dL (9-23); Sodium 138 mmol/L (136-145); Total Protein 7.2 g/dL (5.7-8.2)
[2023-12-27] MEDS: SODIUM CHLORIDE 0.9% 1,000 ML IVB ONE ×2 (14:55→14:56)
[2023-12-27 14:57] VITALS: BP 125/80; PULSE 81; RESP 17; TEMP 98.5; O2SAT 98
[2023-12-27] MEDS: cefTRIAXone 1GM/50ML D5W 50 ML IV ONE (15:05)
[2023-12-27] MEDS ORDERED: BACDST PO (18:44)
== END 2023-12-27 19:29 | disposition home or self-care (01) ==
LOC: ER 10:04
DX: R10.30 Lower abdominal pain, unspecified (principal); J45.909 Unspecified asthma, uncomplicated; I10 Essential (primary) hypertension; Z88.1 Allergy status to other antibiotic agents; Z79.899 Other long term (current) drug therapy
CPT/HCPCS: 36415; 74176; 80053; 81001; 83605; 83690; 83735; 85025; 85610; 85730; 87086; 96365; 99285; J0696; J7030